=== PATIENT | male | born 1955 | race Caucasian/White ===

== ENCOUNTER 2016-06-10 12:51 | Day surgery (SDC) | payer SELFPAY ==
[~2016-06-10 12:51] MED LIST: Lactated Ringers 1,000 ML IV SCH; Sodium Chloride 0.9% 10 ML Syringe FLUSH PRN
[2016-06-10] MEDS ORDERED: Midazolam 1 MG/ML 2 ML SDV ONE (14:02)
[2016-06-10] MEDS ORDERED: fentaNYL 100 MCG/2 ML SDV ONE (14:02)
[2016-06-10] MEDS ORDERED: Propofol 200 MG/20 ML SDV ONE (14:02)
--- NOTE | 2016-06-10 14:10 | PCM.PN ---
- General Info Date of Service: 06/10/16 - Review of Systems Systems Review Comment:: 61-year-old male referred by Radha browne for colonoscopy. His is his first colonoscopy. He was noted to have guaiac positive stools. He denies any recent change in bowel habits. He is medically stable to proceed today with no significant change in his health status since his last exam. I discussed the proposed colonoscopy with the patient. Risks included but were not limited to bleeding and GI injury. He appears to understand and agrees to proceed. - Patient Data Vitals - most recent: Last Vital Signs Temp 98.1 F 06/10/16 13:34 Pulse 82 06/10/16 13:34 Resp 20 06/10/16 13:34 BP 152/83 H 06/10/16 13:34 Pulse Ox 99 06/10/16 13:34 Weight - most recent: 95.254 kg Med Orders - Current: Current Medications Lactated Ringer's (Ringers, Lactated) 1,000 mls @ 125 mls/hr IV ASDIRECTED VALERIA Last Admin: 06/10/16 13:42 Dose: 125 mls/hr Sodium Chloride (Saline Flush) 10 ml FLUSH ASDIRECTED PRN PRN Reason: Keep Vein Open Discontinued Medications Fentanyl (Sublimaze) Confirm Administered Dose 100 mcg .ROUTE .STK-MED ONE Stop: 06/10/16 14:03 Lactated Ringer's (Ringers, Lactated) 1,000 mls @ 125 mls/hr IV ASDIRECTED VALERIA Midazolam HCl (Versed 1 Mg/Ml) Confirm Administered Dose 2 mg .ROUTE .STK-MED ONE Stop: 06/10/16 14:03 Propofol (Diprivan 20 Ml) Confirm Administered Dose 200 mg .ROUTE .STK-MED ONE Stop: 06/10/16 14:03 Sodium Chloride (Saline Flush) 10 ml FLUSH ASDIRECTED PRN PRN Reason: Keep Vein Open - Problem List Review Problem List Initiated/Reviewed/Updated: Yes - My Orders Last 24 Hours: My Active Orders 06/10/16 11:00 Patient Status [ADT] Routine Patient to Empty Bladder [RC] ASDIRECTED Peripheral IV Care [RC] ROUTINE Verify Patient Consent Obtain [RC] ROUTINE Lactated Ringers [Ringers, Lactated] 1,000 ml IV ASDIRECTED Sodium Chloride 0.9% [Saline Flush] 10 ml FLUSH ASDIRECTED PRN Peripheral IV Insertion Adult [OM.PC] Routine - Assessment Assessment:: Guaiac positive stools - Plan Plan:: Colonoscopy
--- NOTE | 2016-06-10 14:47 | PCM.OPNOTE ---
- General Post-Op/Procedure Note Date of Surgery/Procedure: 06/10/16 Operative Procedure(s): Colonoscopy with polypectomy Findings: Small polyps in the sigmoid colon and splenic flexure Pre Op Diagnosis: Guaiac positive stools Post-Op Diagnosis: Colon polyps Anesthesia Technique: MAC Primary Surgeon: Kevin Gilbert Pathology: Colon Polyps Output, Urine Amount: 0 EBL in mLs: 0 Complications: None Condition: Good
[2016-06-10 18:54] VITALS: BP 146/85
--- NOTE | 2016-06-10 19:33 | OR ---
Date of Procedure: 06/10/2016 PREOPERATIVE DIAGNOSIS: Guaiac-positive stools. POSTOPERATIVE DIAGNOSIS: Colon polyps. OPERATION PERFORMED: Colonoscopy with polypectomy. INDICATIONS FOR SURGERY: This 61-year-old male was noted to have guaiac- positive stools. He has not had previous colonoscopy and he is referred for this exam. FINDINGS: Two polyps were noted in the colon. One is in the sigmoid colon, 35 cm from the anal verge. This is a 7 mm sessile polyp. The other is a 6 mm semi- sessile polyp at the level of splenic flexure. No other polyps were seen. The patient's colon is otherwise unremarkable except for a moderate-sized lipoma noted in the region of the sigmoid colon. PROCEDURE: The patient was taken to the operating room. He was given intravenous sedation and with him in the left lateral decubitus position, digital rectal exam was performed showing no rectal masses. The Olympus colonoscope was inserted into the rectum. Retroflexed examination of the rectal canal was performed. The scope was then carefully advanced up to the sigmoid region where at the 35 cm level, a sessile polyp was identified. This was removed with a cautery snare and retrieved into a polyp trap. The scope was then further advanced to the region of the cecum. This was performed under direct visualization and cecal acquisition was confirmed by noting the normal internal cecal anatomy including the appendiceal orifice and ileocecal valve. After examining the cecum, the scope was slowly withdrawn sequentially re- examining the colonic segments. At the level of the splenic flexure, a second polyp was identified as described above. This was removed with a cautery snare and retrieved into a polyp trap. Both polyps were submitted for pathologic evaluation. There was no sign of any complicating process at the polypectomy sites. The exam was completed and the scope was removed. The patient was then awakened and taken from the operating room in satisfactory condition. ESTIMATED BLOOD LOSS: Zero. COMPLICATIONS: None. PROGNOSIS: Good. DEMETRIS Gilbert MD /[id number]
== END 2016-06-10 15:54 | disposition home or self-care (01) ==
LOC: LL.SDS 12:51
PROVIDERS: ATTEND Surgery
DX: D12.5 Benign neoplasm of sigmoid colon (principal); D12.3 Benign neoplasm of transverse colon; I10 Essential (primary) hypertension; F17.210 Nicotine dependence, cigarettes, uncomplicated; Z79.899 Other long term (current) drug therapy; Z90.49 Acquired absence of other specified parts of digestive tract; Z98.890 Other specified postprocedural states
CPT/HCPCS: 00810; 45385; J2250; J2704; J3010; J7120

== ENCOUNTER 2022-02-25 07:40 | Day surgery (SDC) | payer MEDICARE, OTHER ==
[~2022-02-25 07:40] MED LIST changes: -Lactated Ringers 1,000 ML IV SCH; +Midazolam 1 MG/ML 2 ML SDV ONE; +Propofol 200 MG/20 ML SDV ONE; -Sodium Chloride 0.9% 10 ML Syringe FLUSH PRN
[2022-02-25] MEDS ORDERED: Sodium Chloride 0.9% 10 ML Syringe FLUSH PRN (07:45)
[2022-02-25] MEDS: Lactated Ringers 1,000 ML IV SCH (08:13)
[2022-02-25 16:46] VITALS: BP 151/70; PULSE 87
== END 2022-02-25 10:38 | disposition home or self-care (01) ==
LOC: LL.SDS 07:40
PROVIDERS: ATTEND Surgery
DX: Z12.11 Encounter for screening for malignant neoplasm of colon (principal); D12.3 Benign neoplasm of transverse colon; I10 Essential (primary) hypertension; E78.2 Mixed hyperlipidemia; F17.210 Nicotine dependence, cigarettes, uncomplicated; Z98.890 Other specified postprocedural states; Z86.010 Personal history of colon polyps; Z79.899 Other long term (current) drug therapy; Z79.82 Long term (current) use of aspirin; Z90.49 Acquired absence of other specified parts of digestive tract; Z68.33 Body mass index [BMI] 33.0-33.9, adult
CPT/HCPCS: J2250; J2704; J7120